=== PATIENT | male | born 1980 | race Two or more races ===

== ENCOUNTER 2016-07-27 13:16 | Emergency (ER) | payer BC ==
[~2016-07-27] VITALS: Ht 170.2 cm; Wt 108.9 kg
[2016-07-27] MEDS ORDERED: METOCLOPRAMIDE HCL 10 MG/2 ML VIAL. IV ONE (14:45)
[2016-07-27] MEDS ORDERED: DIPHENHYDRAMINE 50 MG/ML VIAL IVP ONE (14:45)
[2016-07-27] MEDS ORDERED: IV NORMAL SALINE 1000ML BAG 1,000 ML IV ONE (14:45)
[2016-07-27] MEDS ORDERED: methylPREDNISolone SOD SUCC PF 125 MG/2 ML VIAL. IV ONE (14:45)
[2016-07-27] MEDS ORDERED: BUTA1CAP29 PO (15:58)
--- NOTE | 2016-07-27 15:58 | PHYS DOC ---
Past Medical History Past Medical History: Asthma Past Surgical History: Other Additional Past Surgical Histo: hernia repair Additional Information: Nonsmoker Alcohol Use: Occasionally Drug Use: None Adult General Chief Complaint Chief Complaint: HEADACHE HPI HPI Patient is a 36 year old male who presents with left frontal headache that began at approximately noon today. He reports gradual onset of the pain. Prior to the headache he had "wheezy" vision in both eyes. He continues to have some blurred vision in the left eye but states that the right eye vision is back to normal. He reports photophobia with the pain as well. He has had recent nasal congestion, sore throat, productive cough, and shortness of breath. He saw his PCP last week for his cough and was prescribed an albuterol inhaler. He denies fevers. He has not had any nausea, vomiting, neck pain, dizziness, focal weakness, or numbness with his headache. He does not have a history of headaches or sinusitis. He recently wore a 24-hour Holter monitor for slow heart rate. He has not received the results of this test yet. His pulse today is normal in the high 60s to mid 70s. His PCP is Dr. Clarke. Review of Systems Review of Systems Constitutional: Denies fever or chills. [] Eyes: Denies redness, or eye pain. Reports "wavy" vision and photophobia. HENT: Denies ear pain. Reports nasal congestion and sore throat. Respiratory: Reports productive cough and shortness of breath. Cardiovascular: Denies chest pain, palpitations or edema. [] GI: Denies abdominal pain, nausea, vomiting. [] Musculoskeletal: Denies back pain or joint pain. Denies neck pain. Integument: Denies rash or skin lesions. [] Neurologic: Denies dizziness, focal weakness or sensory changes. Reports headache. All systems reviewed and negative unless otherwise stated in the HPI. Current Medications Current Medications Current Medications Medications (Trade) Dose Ordered Sig/Jessica Start Time Stop Time Status Last Admin Dose Admin Diphenhydramine HCl 25 mg 25 mg 1X ONCE 07/27/16 14:45 07/27/16 14:46 DC 07/27/16 15:01 25 MG Methylprednisolone Sodium Succinate (Solu-Medrol 125mg Vial) 125 mg 1X ONCE 07/27/16 14:45 07/27/16 14:46 DC 07/27/16 15:00 125 MG Metoclopramide HCl (Reglan) 10 mg 1X ONCE 07/27/16 14:45 07/27/16 14:46 DC 07/27/16 15:00 10 MG Sodium Chloride (Iv Sodium Chloride 0.9% 1000ml Bag) 1,000 ml @ 1,000 mls/hr 1X ONCE 07/27/16 14:45 07/27/16 15:44 DC 07/27/16 15:08 1,000 MLS/HR Allergies Allergies Allergies Coded Allergies Type Severity Reaction Last Updated Verified Penicillins Allergy Intermediate rash 07/25/13 Yes Physical Exam Physical Exam Constitutional: Well developed, well nourished, no acute distress, non-toxic appearance. [] HENT: Normocephalic, atraumatic, bilateral external ears normal, oropharynx moist, no oral exudates, nose normal. Bilateral TMs without erythema or bulging. There is no posterior pharyngeal erythema or tonsillar edema. Bilateral nasal turbinates are swollen and erythematous. There is no tenderness over the sinuses. Eyes: PERRLA, EOMI, conjunctiva normal, no discharge. [] Neck: Normal range of motion, no tenderness, supple, no stridor. No nuchal rigidity or meningeal signs. Cardiovascular: Heart rate regular rhythm, no murmur [] Lungs & Thorax: Bilateral breath sounds clear to auscultation without wheezes, rales, or rhonchi. Abdomen: Bowel sounds normal, soft, no tenderness, no masses, no pulsatile masses. [] Skin: Warm, dry, no erythema, no rash. [] Back: No tenderness, no CVA tenderness. [] Extremities: No tenderness, no cyanosis, no clubbing, ROM intact, no edema. [] Neurologic: Alert and oriented X 3, normal motor function, normal sensory function, no focal deficits noted. CN II-XII grossly intact. Psychologic: Affect normal, judgement normal, mood normal. [] Current Patient Data Vital Signs Vital Signs Date Time Temp Pulse Resp B/P Pulse Ox O2 Delivery O2 Flow Rate FiO2 07/27/16 13:35 97.8 76 16 144/78 99 Room Air 97.8 EKG EKG [] Radiology/Procedures Radiology/Procedures [] Course & Med Decision Making Course & Med Decision Making Pertinent Labs and Imaging studies reviewed. (See chart for details) ED course: Patient presents with gradual onset left frontal headache with visual aura. On exam, there are no neurologic deficits or meningeal signs. His headache resolved with IV digital, Reglan, and Solu-Medrol. He is discharged home with prescription for Fioricet. He is given contact information for neurology for follow-up. He is encouraged to follow-up with his PCP regarding his Holter monitor results. Return precautions were discussed. He verbalizes understanding and agrees with plan. Dragon Disclaimer Dragon Disclaimer This electronic medical record was generated, in whole or in part, using a voice recognition dictation system. Departure Departure Impression: Primary Impression: Migraine Disposition: HOME, SELF-CARE Condition: IMPROVED Referrals: CÉSAR CLARKE MD (PCP) CONSTANCE PAN MD Patient Instructions: Migraine Headache, [id number] Additional Instructions: Your symptoms appear to be due to a migraine headache with visual aura. Please take the prescribed medication as directed if your headache returns. Please follow-up with the neurologist listed below. Please follow-up with your primary care provider for your heart test results. Return to the emergency department if you have severe pain, fever, neck stiffness, weakness or numbness on one side of your body, or other new or concerning symptoms. Scripts Butalb/Acetaminophen/Caffeine (Fioricet 50-300-40 Mg Capsule)1 Each Capsule1 Each PO PRN Q4HRS PRN MIGRAINE HEADACHE #12 CAP Prov:MARU RUSSELL 07/27/16 Problem Qualifiers Primary Impression: Migraine Migraine type: with aura Status migrainosus presence: without status migrainosus Intractability: not intractable Qualified Code: G43.109 - Migraine with aura, not intractable, without status migrainosus MARU RUSSELL Jul 27, 2016 15:58
[2016-07-27 16:00] VITALS: BP 102/60
== END 2016-07-27 16:20 | disposition home or self-care (01) ==
LOC: ER 13:16
DX: G43.109 Migraine with aura, not intractable, without status migrainosus (principal); J45.909 Unspecified asthma, uncomplicated; Z88.0 Allergy status to penicillin
CPT/HCPCS: 96361; 96374; 96375; 99284; J1200; J2765; J2930; J7030

== ENCOUNTER → 2016-09-01 | Outpatient (CLI) | payer BC ==
[~2016-09-01] MED LIST: BUTA1CAP29 PO
--- NOTE | 2016-09-02 10:01 | CARD ---
APPROVED REPORT EXAM: Two-dimensional and M-mode echocardiogram with Doppler and color Doppler. Other Information Quality : GoodHR: 46bpm Rhythm : Bradycardia INDICATION Palpitations 2D DIMENSIONS RVDd3.5 (2.9-3.5cm)Left Atrium(2D)4.0 (1.6-4.0cm) IVSd1.0 (0.7-1.1cm)Aortic Root(2D)3.1 (2.0-3.7cm) LVDd5.3 (3.9-5.9cm)LVOT Diameter2.3 (1.8-2.4cm) PWd0.9 (0.7-1.1cm)LVDs3.4 (2.5-4.0cm) FS (%) 36.1 %SV89.7 ml Aortic Valve AoV Peak Gaston.132.8cm/sAoV VTI27.3cm AO Peak GR.7.1mmHgLVOT Peak Gaston.120.4cm/s AO Mean GR.3mmHgAVA (VMAX)4.45cm2 Mitral Valve MV E Eaioxpbl24.4cm/sMV E Peak Gr.4mmHg MV DECEL [id number] A Azjxsftx56.1cm/s MV E Mean Gr.1mmHgE/A Ratio1.8 MV A [id number] Tricuspid Valve TR P. Hmrdmaoc201du/sRAP [id number] TR Peak Gr.27dwKoGGUC34gsIa Pulmonary Vein S1 Nxemdmzs81.7cm/sD2 Eggxnckx67.6cm/s PVa [id number] LEFT VENTRICLE The left ventricle is normal size. There is normal left ventricular wall thickness. Left ventricle sy stolic function is normal. The Ejection Fraction is 50-55%. There is normal LV segmental wall motion. The left ventricular diastolic function and filling is normal for age. There is no ventricular septa l defect visualized. RIGHT VENTRICLE The right ventricle is normal size. The right ventricular systolic function is normal. ATRIA The left atrium size is normal. The right atrium size is normal. The interatrial septum is intact wit h no evidence for an atrial septal defect or patent foramen ovale as noted on 2-D or Doppler imaging. AORTIC VALVE The aortic valve is normal in structure and function. The aortic valve is trileaflet. Doppler and Col or Flow revealed no significant aortic regurgitation. There is no significant aortic valvular stenosi s. MITRAL VALVE The mitral valve is normal in structure and function. There is no evidence of mitral valve prolapse. There is no mitral valve stenosis. Doppler and Color Flow revealed no mitral valve regurgitation note d. TRICUSPID VALVE The tricuspid valve is normal in structure. Doppler and Color Flow revealed mild tricuspid regurgitat ion. The PA pressure was estimated at 37 mmHg. There is no tricuspid valve stenosis. PULMONIC VALVE The pulmonary valve is normal in structure. Doppler and Color Flow revealed mild pulmonic valvular re gurgitation. There is no pulmonic valvular stenosis. GREAT VESSELS The aortic root is normal in size. The ascending aorta is normal in size. Normal pulmonary venous livan w (Doppler). The IVC is normal in size and collapses >50% with inspiration. PERICARDIAL EFFUSION There is no pleural effusion. There is no evidence of significant pericardial effusion. Critical Notification Critical Value: No <Conclusion> The left ventricle is normal size. Left ventricle systolic function is normal. The Ejection Fraction is 50-55%. There is normal left ventricular wall thickness. There is no significant aortic valvular stenosis. Doppler and Color Flow revealed no significant aortic regurgitation. Doppler and Color Flow revealed no mitral valve regurgitation noted. Doppler and Color Flow revealed mild tricuspid regurgitation. The PA pressure was estimated at 37 mmHg.
== END | disposition home or self-care (01) ==
LOC: ECHO 13:16
PROVIDERS: ATTEND Internal Medicine Cardiovascular Disease
DX: I07.1 Rheumatic tricuspid insufficiency (principal); I37.1 Nonrheumatic pulmonary valve insufficiency
CPT/HCPCS: 93306

== ENCOUNTER 2017-10-28 09:44 | Emergency (ER) | payer BC ==
[2017-10-28 10:06] LABS: BILIRUBIN,URINE NEGATIVE (NEG); CLARITY,URINE CLEAR; COLOR,URINE ORANGE; GLUCOSE,URINE NEGATIVE (NEG); PH,URINE 5.5; PROTEIN,URINE NEGATIVE (NEG-TRACE)
[2017-10-28 10:11] LABS: BACTERIA,URINE FEW /HPF (0-FEW); RBC,URINE OCC /HPF (0-2); WBC,URINE OCC /HPF (0-4)
[2017-10-28 10:24] LABS: ADD MAN DIFF? NO
[2017-10-28 10:26] LABS: BASO % 1 % (0-3); EOS # 0.1 x10^3/uL (0.0-0.7); EOS % 2 % (0-3); HEMATOCRIT 42.5 % (39.0-53.0); HEMOGLOBIN 14.9 g/dL (13.0-17.5); LYMPH # 2.2 x10^3/uL (1.0-4.8); LYMPH % 33 % (24-48); MEAN CORPUSCULAR HEMOGLOBIN 31 pg (25-35); MEAN CORPUSCULAR HGB CONC 35 g/dL (31-37); MEAN CORPUSCULAR VOLUME 89 fL (79-100); MONO # 0.5 x10^3/uL (0.0-1.1); MONO % 8 % (0-9); NEUT # 3.8 x10^3uL (1.8-7.7); NEUT % 56 % (31-73); PLATELET COUNT 273 x10^3/uL (140-400); RED BLOOD COUNT 4.78 x10^6/uL (4.30-5.70); RED CELL DISTRIBUTION WIDTH 13.6 % (11.5-14.5); WHITE BLOOD COUNT 6.7 x10^3/uL (4.0-11.0)
[2017-10-28 10:41] LABS: ANION GAP 10 (6-14); BLOOD UREA NITROGEN 17 mg/dL (8-26); BUN/CREATININE RATIO 24 (6-20); CALCIUM 8.8 mg/dL (8.5-10.1); CARBON DIOXIDE 25 mmol/L (21-32); CHLORIDE 105 mmol/L (98-107); CREATININE 0.7 mg/dL (0.7-1.3); GFR 125.5; GLUCOSE 101 mg/dL (70-99); POTASSIUM 3.9 mmol/L (3.5-5.1); SODIUM 140 mmol/L (136-145)
[2017-10-28 10:47] LABS: ALBUMIN 3.8 g/dL (3.4-5.0); ALBUMIN/GLOBULIN RATIO 1.1 (1.0-1.7); ALK PHOS 61 U/L (46-116); ALT (SGPT) 24 U/L (16-63); AST (SGOT) 13 U/L (15-37); TOTAL BILIRUBIN 0.6 mg/dL (0.2-1.0); TOTAL PROTEIN 7.3 g/dL (6.4-8.2)
[2017-10-28] MEDS: cefTRIAXone IM 250 MG VIAL IM (11:47)
[2017-10-28] MEDS: AZITHROMYCIN 250 MG TABLET. PO (11:47)
[2017-10-28] MEDS: metroNIDAZOLE 500 MG TABLET PO (11:48)
== END 2017-10-28 12:15 | disposition home or self-care (01) ==
LOC: ER 09:44
DX: N41.9 Inflammatory disease of prostate, unspecified (principal); Z79.2 Long term (current) use of antibiotics; Z79.899 Other long term (current) drug therapy; Z88.0 Allergy status to penicillin
CPT/HCPCS: 36415; 80053; 81001; 85025; 87491; 87591; 96372; 99284; J0696; Q0144

== ENCOUNTER 2018-07-10 20:42 | Emergency (ER) | payer BC, OTHER ==
[~2018-07-10] VITALS: Ht 167.6 cm; Wt 106.6 kg
[~2018-07-10 20:42] MED LIST changes: +LEVO500T59 PO
[2018-07-10 21:46] LABS: BILIRUBIN,URINE NEGATIVE (NEG); CLARITY,URINE CLEAR; COLOR,URINE YELLOW; NITRITE,URINE NEGATIVE (NEG); PH,URINE 6.5; PROTEIN,URINE NEGATIVE (NEG-TRACE)
[2018-07-10 21:48] LABS: BASO # 0.1 x10^3/uL (0.0-0.2); BASO % 1 % (0-3); EOS # 0.2 x10^3/uL (0.0-0.7); EOS % 2 % (0-3); HEMATOCRIT 43.5 % (39.0-53.0); HEMOGLOBIN 15.2 g/dL (13.0-17.5); LYMPH # 2.7 x10^3/uL (1.0-4.8); LYMPH % 30 % (24-48); MEAN CORPUSCULAR HEMOGLOBIN 31 pg (25-35); MEAN CORPUSCULAR HGB CONC 35 g/dL (31-37); MEAN CORPUSCULAR VOLUME 89 fL (79-100); MONO # 0.9 x10^3/uL (0.0-1.1); MONO % 10 % (0-9); NEUT # 5.1 x10^3uL (1.8-7.7); NEUT % 57 % (31-73); PLATELET COUNT 267 x10^3/uL (140-400); RED BLOOD COUNT 4.89 x10^6/uL (4.30-5.70); RED CELL DISTRIBUTION WIDTH 13.5 % (11.5-14.5); WHITE BLOOD COUNT 8.9 x10^3/uL (4.0-11.0)
[2018-07-10 21:53] LABS: AMPHETAMINE/METHAMPHETAMINE NEG (NEG); BARBITURATES NEG (NEG); BENZODIAZEPINES NEG (NEG); CANNABINOIDS NEG (NEG); COCAINE NEG (NEG); METHADONE NEG (NEG); OPIATES NEG (NEG); PHENCYCLIDINE NEG (NEG)
[2018-07-10 21:57] LABS: CREATININE 0.9 mg/dL (0.7-1.3); GFR 93.5; POTASSIUM 3.7 mmol/L (3.5-5.1)
[2018-07-10 21:57] LABS: BACTERIA,URINE FEW /HPF (0-FEW); HYALINE CASTS, URINE FEW /HPF; SQUAMOUS EPITHELIAL CELL,UR FEW /LPF
[2018-07-10] MEDS ORDERED: fentaNYL PF VIAL 100 MCG/2 ML VIAL IV ONE (22:00)
[2018-07-10] MEDS ORDERED: LIDO:MAALOX 1:1 20 ML SINGLE DOSE. SWSW ONE (22:00)
[2018-07-10] MEDS ORDERED: FAMOTIDINE 20 MG/2 ML VIAL IVP ONE (22:00)
[2018-07-10] MEDS ORDERED: ONDANSETRON PF 4 MG/2 ML VIAL. IV ONE (22:00)
[2018-07-10 22:03] LABS: ALBUMIN 3.6 g/dL (3.4-5.0); TOTAL BILIRUBIN 0.3 mg/dL (0.2-1.0); TOTAL PROTEIN 7.3 g/dL (6.4-8.2)
--- NOTE | 2018-07-10 22:22 | RAD ---
Examination: CT ABDOMEN PELVIS WO CONTRAST History: RT.FLANK PAIN Comparison/Correlation: None Findings: Axial images of the abdomen and pelvis were obtained without contrast. Sagittal and coronal reformatted images were provided. Visualized lung bases are clear. Liver, spleen, pancreas, adrenal glands, and kidneys are unremarkable. No radiopaque collecting system calculi. No hydronephrosis or hydroureter. Appendix is normal. No bowel obstruction. No inflammatory changes identified to involve the bowel. Midline ventral hernia defects are very small at the upper abdominal level. Bony structures are unremarkable for the patient's age. Impression: No acute inflammatory process or obstruction. No radiopaque collecting system calculi. Electronically signed by: Wilfredo Quesada MD (07/10/2018 10:18 PM) [facility]
--- NOTE | 2018-07-10 23:22 | PHYS DOC ---
Past Medical History Past Medical History: No Pertinent History Past Surgical History: Other Additional Past Surgical Histo: Hernia Alcohol Use: Occasionally Drug Use: None Adult General Chief Complaint Chief Complaint: FLANK PAIN HPI HPI Patient is a 38 year old male who presents with no significant hx who presents with mild to moderate flank pain for one month. Patient denies any injury. Denies any nausea vomiting, denies any fever. Denies any urgency frequency dysuria or hematuria. He states this afternoon he developed some epigastric abdominal pain which she states his had before. He states he has history of chronic back pain and he is on several medications from his PCP including cyclobenzaprine and diclofenac. PCP Dr. Clarke Review of Systems Review of Systems Constitutional: Denies fever or chills [] Eyes: Denies change in visual acuity, redness, or eye pain [] HENT: Denies nasal congestion or sore throat [] Respiratory: Denies cough or shortness of breath [] Cardiovascular: No additional information not addressed in HPI [] GI: Reports epigastric abdominal pain, denies nausea, vomiting, bloody stools or diarrhea [] : Reports bilateral flank pain. Denies dysuria or hematuria [] Musculoskeletal: Denies back pain or joint pain [] Integument: Denies rash or skin lesions [] Neurologic: Denies headache, focal weakness or sensory changes [] All other systems were reviewed and found to be within normal limits, except as documented in this note. Current Medications Current Medications Current Medications Medications (Trade) Dose Ordered Sig/Jessica Start Time Stop Time Status Last Admin Dose Admin Famotidine (Pepcid Vial) 20 mg 1X ONCE 07/10/18 22:00 07/10/18 22:01 DC 07/10/18 22:03 20 MG Fentanyl Citrate (Fentanyl 2ml Vial) 50 mcg 1X ONCE 07/10/18 22:00 07/10/18 22:01 DC 07/10/18 22:01 50 MCG Multi-Ingredient Mouthwash/Gargle (Gi Cocktail) 20 ml 1X ONCE 07/10/18 22:00 07/10/18 22:01 DC 07/10/18 21:59 20 ML Ondansetron HCl (Zofran) 4 mg 1X ONCE 07/10/18 22:00 07/10/18 22:01 DC 07/10/18 22:00 4 MG Allergies Allergies Allergies Coded Allergies Type Severity Reaction Last Updated Verified Penicillins Allergy Intermediate rash 07/25/13 Yes Physical Exam Physical Exam Constitutional: Well developed, well nourished, no acute distress, non-toxic appearance. [] HENT: Normocephalic, atraumatic, bilateral external ears normal, oropharynx moist, no oral exudates, nose normal. [] Eyes: PERRLA, EOMI, conjunctiva normal, no discharge. [] Neck: Normal range of motion, no tenderness, supple, no stridor. [] Cardiovascular:Heart rate regular rhythm, no murmur [] Lungs & Thorax: Bilateral breath sounds clear to auscultation [] Abdomen: Bowel sounds normal, soft, no tenderness, no masses, no pulsatile masses. [] Skin: Warm, dry, no erythema, no rash. [] Back: No tenderness, no CVA tenderness. [] Extremities: No tenderness, no cyanosis, no clubbing, ROM intact, no edema. [] Neurologic: Alert and oriented X 3, normal motor function, normal sensory function, no focal deficits noted. [] Psychologic: Affect normal, judgement normal, mood normal. [] Current Patient Data Vital Signs Vital Signs Date Time Temp Pulse Resp B/P (MAP) Pulse Ox O2 Delivery O2 Flow Rate FiO2 07/10/18 22:55 78 16 126/76 (93) 97 Room Air 07/10/18 21:12 97.5 97.5 Lab Values Laboratory Tests Test 07/10/18 20:46 07/10/18 21:36 Urine Collection Type Unknown Urine Color Yellow Urine Clarity Clear Urine pH 6.5 Urine Specific [place] 1.025 Urine Protein Negative mg/dL (NEG-TRACE) Urine Glucose (UA) Negative mg/dL (NEG) Urine Ketones (Stick) Negative mg/dL (NEG) Urine Blood Negative (NEG) Urine Nitrite Negative (NEG) Urine Bilirubin Negative (NEG) Urine Urobilinogen Dipstick 1.0 mg/dL (0.2 mg/dL) Urine Leukocyte Esterase Negative (NEG) Urine RBC 3-5 /HPF (0-2) Urine WBC 5-10 /HPF (0-4) Urine Squamous Epithelial Cells Few /LPF Urine Bacteria Few /HPF (0-FEW) Urine Hyaline Casts Few /HPF Urine Mucus Marked /LPF Urine Opiates Screen Neg (NEG) Urine Methadone Screen Neg (NEG) Urine Barbiturates Neg (NEG) Urine Phencyclidine Screen Neg (NEG) Urine Amphetamine/Methamphetamine Neg (NEG) Urine Benzodiazepines Screen Neg (NEG) Urine Cocaine Screen Neg (NEG) Urine Cannabinoids Screen Neg (NEG) Urine Ethyl Alcohol Neg (NEG) White Blood Count 8.9 x10^3/uL (4.0-11.0) Red Blood Count 4.89 x10^6/uL (4.30-5.70) Hemoglobin 15.2 g/dL (13.0-17.5) Hematocrit 43.5 % (39.0-53.0) Mean Corpuscular Volume 89 fL (79-100) Mean Corpuscular Hemoglobin 31 pg (25-35) Mean Corpuscular Hemoglobin Concent 35 g/dL (31-37) Red Cell Distribution Width 13.5 % (11.5-14.5) Platelet Count 267 x10^3/uL (140-400) Neutrophils (%) (Auto) 57 % (31-73) Lymphocytes (%) (Auto) 30 % (24-48) Monocytes (%) (Auto) 10 % (0-9) H Eosinophils (%) (Auto) 2 % (0-3) Basophils (%) (Auto) 1 % (0-3) Neutrophils # (Auto) 5.1 x10^3uL (1.8-7.7) Lymphocytes # (Auto) 2.7 x10^3/uL (1.0-4.8) Monocytes # (Auto) 0.9 x10^3/uL (0.0-1.1) Eosinophils # (Auto) 0.2 x10^3/uL (0.0-0.7) Basophils # (Auto) 0.1 x10^3/uL (0.0-0.2) Sodium Level 138 mmol/L (136-145) Potassium Level 3.7 mmol/L (3.5-5.1) Chloride Level 103 mmol/L (98-107) Carbon Dioxide Level 27 mmol/L (21-32) Anion Gap 8 (6-14) Blood Urea Nitrogen 19 mg/dL (8-26) Creatinine 0.9 mg/dL (0.7-1.3) Estimated GFR (Cockcroft-Gault) 93.5 BUN/Creatinine Ratio 21 (6-20) H Glucose Level 102 mg/dL (70-99) H Calcium Level 9.0 mg/dL (8.5-10.1) Total Bilirubin 0.3 mg/dL (0.2-1.0) Aspartate Amino Transferase (AST) 19 U/L (15-37) Alanine Aminotransferase (ALT) 31 U/L (16-63) Alkaline Phosphatase 78 U/L (46-116) Total Protein 7.3 g/dL (6.4-8.2) Albumin 3.6 g/dL (3.4-5.0) Albumin/Globulin Ratio 1.0 (1.0-1.7) Lipase 84 U/L (73-393) Ethyl Alcohol Level < 10 mg/dL (0-10) Laboratory Tests 07/10/18 21:36 Laboratory Tests 07/10/18 21:36 EKG EKG [] Radiology/Procedures Radiology/Procedures [] Course & Med Decision Making Course & Med Decision Making Pertinent Labs and Imaging studies reviewed. (See chart for details) This is a well-appearing 38-year-old male patient presented to the ED today with epigastric abdominal pain and flank pain. Flank pain for 1 month. UA is negative, CBC, CMP, lipase with no acute findings, CT of the abdomen and pelvic is negative for any acute findings. Patient has history of back pain currently on cyclobenzaprine and diclofenac. I wonder if his flank pain is musculoskeletal related to his back pain. Encouraged him to continue taking the medications is on. Given prescription for gabapentin and Zantac. Follow-up with PCP in the next 1-2 weeks. Dragon Disclaimer Dragon Disclaimer This electronic medical record was generated, in whole or in part, using a voice recognition dictation system. Departure Departure Impression: Primary Impression: Flank pain Additional Impression: Epigastric pain Disposition: HOME, SELF-CARE Condition: STABLE Referrals: CÉSAR CLARKE MD (PCP) Follow-up in one week Patient Instructions: Abdominal Pain, Flank Pain, [id number] Additional Instructions: You were evaluated in the emergency room for flank pain and abdominal pain. We could not find any acute cause for your symptoms. Continue taking the medications you got from your doctor. We gave you no prescriptions, take them as prescribed. With history of 1 year 4 mg Scripts Ranitidine Hcl (ZANTAC) 150 Mg Tablet 1 TAB PO BID, #14 TAB 3 Refills Prov: MUTUNGA,NEETA POWER PROJECT MANAGER 07/10/18 Gabapentin (GABAPENTIN) 300 Mg Capsule 300 MG PO TID for NEUROGENIC PAIN, #20 CAP Prov: NEETA FREED APRN 07/10/18 Problem Qualifiers NEETA FREED APRN Jul 10, 2018 23:22
[2018-07-10] MEDS ORDERED: RANI150T21 PO (23:25)
[2018-07-10] MEDS ORDERED: GABA300C18 PO (23:25)
[2018-07-10 23:50] VITALS: BP 118/70
== END 2018-07-10 23:54 | disposition home or self-care (01) ==
LOC: ER 20:42
DX: R10.13 Epigastric pain (principal); G89.29 Other chronic pain; Z98.890 Other specified postprocedural states; Z88.0 Allergy status to penicillin
CPT/HCPCS: 36415; 74176; 80053; 80307; 81001; 83690; 85025; 87086; 96374; 96375; 99284; G0480; J2405; J3010; J3490

== ENCOUNTER 2019-06-04 15:31 | Emergency (ER) | payer OTHER ==
[~2019-06-04] VITALS: Ht 170.2 cm; Wt 108.9 kg
[~2019-06-04 15:31] MED LIST changes: +GABA300C18 PO; +RANI-376 PO
[2019-06-04 16:11] VITALS: BP 162/81
--- NOTE | 2019-06-04 17:09 | PHYS DOC ---
Past Medical History Past Medical History: No Pertinent History Past Surgical History: Other Additional Past Surgical Histo: Hernia Alcohol Use: Occasionally Drug Use: None Adult General Chief Complaint Chief Complaint: FACE PROBLEM HPI HPI Patient is a 39 year old male who presents to the emergency department with complaints of a sore throat for the last 2 weeks. Patient denies any difficulty swallowing, just breath, wheezing, chest pain, palpitations, fever, ear pain, nasal congestion, cough, or headache. Patient also denies any rash, nausea, vomiting, diarrhea, or abdominal pain. Patient states he is unsure if he has had a fever or not, he did feel hot and had some chills a few times recently. Patient states that a few days ago the left side of his face felt numb, he denies any numbness at this time. He currently rates his throat discomfort as 3 out of 10 on the pain scale, he denies any alleviating factors, the pain increases with swallowing. He denies any known exposure to strep recently. All other ROS is neg unless otherwise noted in HPI. Review of Systems Review of Systems See Above Allergies Allergies Allergies Coded Allergies Type Severity Reaction Last Updated Verified Penicillins Allergy Intermediate rash 07/25/13 Yes Physical Exam Physical Exam See Above Constitutional: Well developed, well nourished, no acute distress, non-toxic appearance. [] HENT: Normocephalic, atraumatic, bilateral external ears normal, bilateral TMs normal, mild erythema of posterior pharynx, oropharynx moist, no oral exudates, nose normal; malodorous breath noted. [] Eyes: PERRLA, EOMI, conjunctiva normal, no discharge. [] Neck: Normal range of motion, no tenderness, supple, no stridor. [] Cardiovascular:Heart rate regular rhythm, no murmur [] Lungs & Thorax: Bilateral breath sounds clear to auscultation, Respirations even and unlabored, no retractions, no respiratory distress [] Skin: Warm, dry, no erythema, no rash. [] Back: No tenderness Extremities: No cyanosis, ROM intact Neurologic: Alert and oriented X 3, no focal deficits noted; equal bilateral facial movements, no flattening nasolabial folds or facial drooping. [] Psychologic: Affect normal, judgement normal, mood normal. [] Current Patient Data Vital Signs Vital Signs Date Time Temp Pulse Resp B/P (MAP) Pulse Ox O2 Delivery O2 Flow Rate FiO2 06/04/19 16:11 98.3 78 16 162/81 (108) 95 Room Air 98.3 Lab Values Laboratory Tests Test 06/04/19 16:38 Group A Streptococcus Rapid Negative (NEGATIVE) EKG EKG [] Radiology/Procedures Radiology/Procedures Rapid strep is negative[] Course & Med Decision Making Course & Med Decision Making Pertinent Labs and Imaging studies reviewed. (See chart for details) [] Dragon Disclaimer Dragon Disclaimer This electronic medical record was generated, in whole or in part, using a voice recognition dictation system. Departure Departure Impression: Primary Impression: Pharyngitis, acute Disposition: HOME, SELF-CARE Condition: STABLE Referrals: CÉSAR CRESPO MD (PCP) Patient Instructions: Viral and Bacterial Pharyngitis, [id number] Additional Instructions: Recommend warm salt water gargles as needed for relief of discomfort. Alternate Tylenol and ibuprofen as needed for fever/pain. Follow-up with primary care doctor if symptoms persist. Return to the ER if symptoms worsen. Problem Qualifiers Primary Impression: Pharyngitis, acute Pharyngitis/tonsillitis etiology: unspecified etiology Qualified Codes: J02.9 - Acute pharyngitis, unspecified PARAMJIT SCOTT INVESTOR Jun 04, 2019 17:09
== END 2019-06-04 17:39 | disposition home or self-care (01) ==
LOC: ER 15:31
DX: J02.9 Acute pharyngitis, unspecified (principal); Z88.0 Allergy status to penicillin
CPT/HCPCS: 87070; 87880; 99283

== ENCOUNTER → 2019-09-04 | Day surgery (SDC) | payer OTHER ==
[~2019-09-04] MED LIST changes: +HYDROmorphone 2 MG/ML VIAL IV PRN; +MORPHINE SULFATE 2 MG/ML VIAL. IV PRN; +OMEP20TA63 PO; +PROCHLORPERAZINE 10 MG/2 ML VIAL. IV PRN; +PROPOFOL 20 ML IV ONE; +fentaNYL PF VIAL 100 MCG/2 ML VIAL IV PRN
[2019-09-04] MEDS: IV RINGERS,LACTATED 1000ML 1,000 ML IV SCH (07:08)
[2019-09-04 07:46] VITALS: BP 94/55
== END | disposition home or self-care (01) ==
LOC: ENDOS 06:28
PROVIDERS: ATTEND Internal Medicine Gastroenterology
DX: R13.10 Dysphagia, unspecified (principal); K22.2 Esophageal obstruction; K21.9 Gastro-esophageal reflux disease without esophagitis; Z88.0 Allergy status to penicillin; Z98.890 Other specified postprocedural states
CPT/HCPCS: 43235; 43450; J2704